=== PATIENT | male | born 1970 | race Caucasian/White ===

== ENCOUNTER 2024-06-19 10:15 | Day surgery (SDC) | payer BC ==
[~2024-06-19] VITALS: Ht 170.2 cm; Wt 85.2 kg
[~2024-06-19 10:15] MED LIST: Famotidine 20 MG TAB PO SCH; LIPITOR20 MG PO; LR 1,000 ML IV SCH; TOPROL XL100 MG PO
[2024-06-19] MEDS ORDERED: Ondansetron 4 MG/2 ML VIAL ONE (11:17)
[2024-06-19] MEDS ORDERED: Rocuronium 50 MG/5 ML Multi-Dose VIAL ONE (11:17)
[2024-06-19] MEDS ORDERED: dexAMETHasone 10 MG/ML VIAL ONE (11:17)
[2024-06-19] MEDS ORDERED: Ketorolac 30 MG/ML VIAL ONE (11:17)
[2024-06-19] MEDS ORDERED: NS 10 ML IV ONE (11:17)
[2024-06-19] MEDS ORDERED: fentaNYL 50 MCG/ML 2 ML VIAL ONE (11:17)
[2024-06-19] MEDS ORDERED: hydrALAZINE 20 MG/ML 1 ML VIAL IV PRN (11:30)
[2024-06-19] MEDS ORDERED: HYDROmorphone 1 MG/1 ML SYRINGE [PACU/SDC ONLY] IV PRN (11:30)
[2024-06-19] MEDS ORDERED: fentaNYL 50 MCG/ML 1 ML SYRINGE/VIAL [PACU/SDC ONLY] IV PRN (11:30)
[2024-06-19] MEDS ORDERED: droPERidol 2.5 MG/ML 2 ML VIAL IV PRN (11:30)
[2024-06-19] MEDS ORDERED: Ondansetron 4 MG/2 ML VIAL IV PRN ×2 (11:30→15:00)
[2024-06-19 11:32] VITALS: BP 152/86; PULSE 58; TEMP 98.2
[2024-06-19] MEDS ORDERED: PRAVACHOL 40MG40 MG PO (11:40)
[2024-06-19] MEDS ORDERED: HYZAAR 25 MG-101 TAB PO (11:40)
[2024-06-19] MEDS ORDERED: Topical Skin Adhesive 1 EACH (1 ML) TOP ONE (12:00)
[2024-06-19] MEDS ORDERED: MOTRIN 600600 MG/TAB PO (12:47)
[2024-06-19] MEDS ORDERED: NORCO 325 MG-51 TAB PO (12:47)
[2024-06-19 15:00] VITALS: BP 139/81; PULSE 64; TEMP 97
[2024-06-19] MEDS ORDERED: Ibuprofen 600 MG TAB PO PRN (15:00)
[2024-06-19] MEDS ORDERED: Morphine 4 MG/ML VIAL IV PRN (15:00)
[2024-06-19 15:15] VITALS: BP 125/69; PULSE 58
[2024-06-19 15:28] VITALS: BP 124/88; PULSE 65; TEMP 97.3
--- NOTE | 2024-06-19 15:30 | NUR ---
2070- JUST SPOKE WITH DR. GEORGE ABOUT DISCHARGE ORDERS FOR PT. TELEPHONE ORDER TO DISCHARGE PT PER DR. GEORGE.
--- NOTE | 2024-06-19 16:35 | NUR ---
1500- PT RETURNS FROM PACU TO [facility] VIA CART. MONITORS ON AND ALARMS SET. CALL LIGHT WITHIN REACH. REPORT RECEIVED FROM PRIMITIVO BENDER. PT ALERT AND ORIENTED. PT REQUESTS FOOD AND DRINK. PT DENIES ANY PAIN OR NAUSEA. 1515- PT TAKING FOOD AND DRINK WELL. NO COMPLICATIONS NOTED. 1530- PT REPORTS HAVING 7/10 PAIN. NORCO GIVEN AT THIS TIME. 1600- DISCHARGE INSTURCTIONS GIVEN TO PT. ALL QUESTIONS ANSWERED. 1610- PT TRANSFERRED OUT OF THE HOSPITAL VIA WHEELCHAIR TO PRIVATE VEHICLE DRIVEN BY .
== END 2024-06-19 16:10 | disposition home or self-care (01) ==
LOC: SDCO 10:15
DX: K40.20 Bilateral inguinal hernia, without obstruction or gangrene, not specified as recurrent (principal)
CPT/HCPCS: C1781; J0690; J1100; J1885; J2405; J2704; J3010; J7120